=== PATIENT | male | born 1980 | race Two or more races ===

== ENCOUNTER 2018-08-28 08:37 | Emergency (ER) | payer OTHER ==
[~2018-08-28] VITALS: Ht 175.3 cm; Wt 64.9 kg
[2018-08-28 09:01] VITALS: BP 137/93
--- NOTE | 2018-08-28 09:02 | NUR ---
ED Nurse Note: pt walked in due to bilateral knee pain started 6am this morning, denies trauma denies taking new meds. pt stated it might be from a nerve damage. pt is complaining of 9/10 pain. will continue to monitor
--- NOTE | 2018-08-28 09:11 | Emergency Room Report ---
History of Present Illness General Chief Complaint: Pain Source: Patient Present Illness HPI 37-year-old male history of poking presents with bilateral knee pain, patient was playing in a pool yesterday, he thinks may be it may have exacerbated his bilateral knee pain, he endorses a sharp and achy, started 1 day prior to arrival, he endorses pain with movement, he took some Tylenol which has helped, aggravated by movement, no nausea no vomiting, no chest pain, no shortness of breath, patient resents for evaluation to the ER Allergies: Coded Allergies: No Known Allergies (Unverified , 08/28/18) Patient History Past Medical History: see triage record Social History: Reports: smoking Reviewed Nursing Documentation: PMH: Agreed; PSxH: Agreed Nursing Documentation-PMH Past Medical History: No Stated History Review of Systems All Other Systems: negative except mentioned in HPI Physical Exam Vital Signs Date Time Temp Pulse Resp B/P (MAP) Pulse Ox O2 Delivery O2 Flow Rate FiO2 08/28/18 08:41 98.4 90 21 137/93 (108) 99 Room Air Sp02 EP Interpretation: reviewed, normal General Appearance: well appearing, no apparent distress, alert Head: normocephalic, atraumatic Eyes: bilateral eye PERRL, bilateral eye EOMI ENT: uvula midline, moist mucus membranes Neck: supple, thyroid normal, supple/symm/no masses Respiratory: lungs clear, no respiratory distress, no retraction, no accessory muscle use Cardiovascular #1: normal peripheral pulses, regular rate, rhythm, no edema, no gallop, no murmur Gastrointestinal: non tender, soft, no guarding, no rebound Musculoskeletal: normal inspection, other - Bilateral knees: 2+ PT DP, 4 out of 5 flexion extension of the knee, valgus varus negative, anterior posterior negative, no effusion felt, no erythema, unremarkable exam, gait intact Neurologic: alert, oriented x3 Psychiatric: mood/affect normal Skin: no rash, warm/dry Medical Decision Making Diagnostic Impression: Primary Impression: Bilateral knee pain ER Course Patient presents with bilateral knee pain, he may have ligamentous strain, patient counseled to follow-up with a orthopedic surgeon, no benefit in x-ray, pain control, disposition home with return precautions Last Vital Signs Date Time Temp Pulse Resp B/P (MAP) Pulse Ox O2 Delivery O2 Flow Rate FiO2 08/28/18 09:01 98.4 81 21 137/93 99 Room Air Disposition: HOME, SELF-CARE Condition: Improved Scripts Methocarbamol* (ROBAXIN-750*) 750 Mg Tablet 750 MG PO QID, #28 TAB 0 Refills Prov: Timo Cline M.D. 08/28/18 Naproxen* (NAPROSYN*) 250 Mg Tablet 500 MG ORAL TID PRN for For Pain, #40 TAB 0 Refills Prov: Timo Cline M.D. 08/28/18 Referrals: [facility] Patient Instructions: KNEE PAIN, Uncertain Cause, Knee Pain, [id number] Additional Instructions: The patient was provided with discharge instructions, notified to follow-up with a primary care doctor and or specialist in the next 24-48 hours, and to return to the ED if they have worsening of their symptoms. Please note that this report is being documented using [employer] technology. This can lead to erroneous entry secondary to incorrect interpretation by the dictating instrument. Timo Cline M.D. Aug 28, 2018 09:11
[2018-08-28] MEDS ORDERED: oxyCODONE HCL/Acetaminophen 5/325mg ORAL ONE (09:15)
[2018-08-28] MEDS ORDERED: Ketorolac 60mg Inj IM ONE (09:15)
[2018-08-28] MEDS ORDERED: NAPROXEN250 MG ORAL (09:18)
[2018-08-28] MEDS ORDERED: ROBAXIN-750750 MG PO (09:18)
--- NOTE | 2018-08-28 09:23 | NUR ---
ED Nurse Note: pt medicated as ordered and able to tolerate po meds. pt ambulate to the restroom with the help of his brother. will continue to monitor.
[2018-08-28 09:26] VITALS: BP 137/93
--- NOTE | 2018-08-28 09:26 | NUR ---
ER DISCHARGE NOTE: Patient is cleared to be discharged per ERMD, pt is aox4, on room air, with stable vital signs. pt was given dc and prescription instructions, pt was able to verbalize understanding, pt id band removed without complications. pt is able to ambulate with steady gait. pt took all belongings.
== END 2018-08-28 09:26 | disposition home or self-care (01) ==
LOC: EMR 09:12
DX: M25.562 Pain in left knee (principal); M25.561 Pain in right knee; F17.200 Nicotine dependence, unspecified, uncomplicated
CPT/HCPCS: 96372; 99283